=== PATIENT | female | born 1955 | race Two or more races ===

== ENCOUNTER 2017-11-24 23:52 | Inpatient (IN) | payer MEDICARE, OTHER ==
[~2017-11-24] VITALS: Ht 149.9 cm; Wt 67.6 kg
--- NOTE | 2017-11-25 | NUR ---
ADMITTED A 62 Y/O FEMALE FROM [facility], ON 5150 HOLD, BASED ON HOLD, PATIENT C/O SUICIDAL IDEATION WITH A PLAN TO STAB HERSELF IN THE THROAT PLUS PROMINENT THOUGHTS OF HURTING NONSPECIFIED OTHERS WELL KILLING HER CAT. SHE REPORTED BEING SEVERELY DESPONDENT DUE TO PROMINENT DEPRESSION, ANXIETY, INTERMITTENT VISUAL HALLUCINATIONS. HX. OF TBI. PATIENT ADMITTING DX. OF PSYCHOSIS AND MEDICAL DX. HYPERCHOLESTEROLEMIA AND GERD. PATIENT HAS ALLERGIES TO A-CILLIN, HYDROCODONE,/POTASSIUM GUAIACOLSULFONATE, PROPRANOLOL, SULFA DRUGS. PATIENT TRANSPORTED BY [facility] OF [facility] PRIVATE TRANSPORTATION. UPON FACE TO FACE EVALUATION, PATIENT APPEARED ALERT AND ORIENTED X 3, COOPERATIVE, ANXIOUS, GUARDED, PARANOID, DEPRESSED, WITH VISUAL HALLUCINATION SEEING CARLITOS TREES AND ARCELIA PERFECTO, PATIENT ALSO STATED THAT SHE WANTS TO GET BETTER. HEAD TO TOE ASSESSMENT DONE. NO SOB, NO ACUTE DISTRESS, BREATHING EVEN AND UNLABORED, DENIES PAIN AND DISCOMFORT, DENIES SI/HI, PICTURE DONE. PAPER WORKS SIGNED BY THE PATIENT. NOTIFIED DR. SWIFT OF THE ADMISSION. BELONGINGS INSPECTED FOR CONTRABAND CHECKED. KEPT CLEAN, DRY AND COMFORTABLE, WILL CONTINUE TO MONITOR [id number] FOR SAFETY
[2017-11-25] MEDS ORDERED: LORAZEPAM 0.5 MG TABLET PO PRN (01:00)
[2017-11-25] MEDS ORDERED: MAG HYDROX/AL HYDROX/SIMETH 30 ML UDC PO PRN (01:00)
[2017-11-25] MEDS ORDERED: MAGNESIUM HYDROXIDE 30 ML UDC PO PRN (01:00)
[2017-11-25] MEDS ORDERED: ACETAMINOPHEN 325 MG TABLET ONE (01:29)
[2017-11-25] MEDS ORDERED: TEMAZEPAM 7.5 MG CAPSULE ONE (01:30)
[2017-11-25] MEDS: TEMAZEPAM 7.5 MG CAPSULE PO PRN (01:39)
[2017-11-25] MEDS: ACETAMINOPHEN 325 MG TABLET PO PRN (01:40)
[2017-11-25] MEDS ORDERED: RANI150C4 PO (02:04)
[2017-11-25] MEDS ORDERED: BUPR150T5 PO (02:04)
[2017-11-25] MEDS ORDERED: CLON2TAB PO (02:04)
[2017-11-25] MEDS ORDERED: QUET100T PO (02:04)
[2017-11-25] MEDS ORDERED: LITH300T PO (02:04)
[2017-11-25] MEDS ORDERED: ATOR10TA PO (02:04)
[2017-11-25] MEDS ORDERED: BUSP10TA35 PO (02:04)
[2017-11-25] MEDS ORDERED: ARIP5TAB10 PO (02:04)
[2017-11-25 02:07] VITALS: BP 139/63
[2017-11-25 08:00] VITALS: BP 129/82
[2017-11-25 09:04] LABS: ALBUMIN 4.4 g/dL (3.4-5.0); BILIRUBIN,TOTAL 0.4 mg/dL (0.2-1.0); CALCIUM, SERUM 9.6 mg/dL (8.5-10.1); CREATININE 0.8 mg/dL (0.6-1.3); POTASSIUM 4.2 mmol/L (3.5-5.1); TOTAL PROTEIN, SERUM 8.1 g/dL (6.4-8.2)
[2017-11-25] MEDS: ATORVASTATIN 10 MG TABLET PO SCH (09:57)
[2017-11-25] MEDS: FAMOTIDINE (20 MG) 20 MG TABLET PO SCH ×2 (09:59→21:49)
[2017-11-25] MEDS: clonazePAM 0.5 MG TABLET PO SCH ×4 (13:00→17:37)
[2017-11-25 16:27] VITALS: BP 127/90
[2017-11-25] MEDS: busPIRone 5 MG TABLET PO SCH ×2 (17:06→20:03)
[2017-11-25] MEDS: LITHIUM CARBONATE 150 MG CAPSULE PO SCH ×2 (17:06→20:03)
[2017-11-25 20:21] VITALS: BP 79/56
[2017-11-25 21:44] VITALS: BP 118/68
[2017-11-25] MEDS: QUETIAPINE FUMARATE 25 MG TABLET PO SCH (21:47)
[2017-11-25 22:00] VITALS: BP 118/68
[2017-11-25] MEDS: clonazePAM 1 MG TABLET PO SCH (22:36)
[2017-11-26 08:00] VITALS: BP 110/63
[2017-11-26 08:18] LABS: CHOLESTEROL 133 mg/dL (<200); HDL CHOLESTEROL 47 mg/dL (40-60); LDL 73 mg/dL (0-99); TRIGLYCERIDES 126 mg/dL (30-150)
[2017-11-26] MEDS: LITHIUM CARBONATE 150 MG CAPSULE PO SCH ×3 (09:17→16:33)
[2017-11-26] MEDS: ATORVASTATIN 10 MG TABLET PO SCH (09:17)
[2017-11-26] MEDS: FAMOTIDINE (20 MG) 20 MG TABLET PO SCH ×2 (09:17→21:01)
[2017-11-26] MEDS: busPIRone 5 MG TABLET PO SCH ×3 (09:17→16:33)
[2017-11-26] MEDS: clonazePAM 0.5 MG TABLET PO SCH ×3 (09:18→16:33)
--- NOTE | 2017-11-26 12:55 | NUR ---
Initial Discharge Note: Patient lives in an apartment located at [address] [place] [address] and wishes to return their upon discharge. Patient states that her daughter lives nearby and that she has dinner with her daughter and her grandson every week. Patient states that she has very friendly neighbors and a good support system. SW called and left a voicemail with direct contact information for patient's daughter, Fadia Trevino, . SW to follow up with MD and to facilitate safe discharge.
[2017-11-26 15:56] VITALS: BP 107/70
[2017-11-26 20:15] VITALS: BP 132/76
[2017-11-26] MEDS: QUETIAPINE FUMARATE 25 MG TABLET PO SCH (21:25)
[2017-11-26] MEDS: clonazePAM 1 MG TABLET PO SCH (21:59)
[2017-11-27 08:00] VITALS: BP 117/66
[2017-11-27] MEDS: busPIRone 5 MG TABLET PO SCH ×3 (08:25→16:09)
[2017-11-27] MEDS: ATORVASTATIN 10 MG TABLET PO SCH (08:25)
[2017-11-27] MEDS: clonazePAM 0.5 MG TABLET PO SCH ×3 (08:25→16:09)
[2017-11-27] MEDS: LITHIUM CARBONATE 150 MG CAPSULE PO SCH ×3 (08:25→16:09)
[2017-11-27] MEDS: FAMOTIDINE (20 MG) 20 MG TABLET PO SCH ×2 (08:25→21:24)
[2017-11-27 16:01] VITALS: BP 132/71
[2017-11-27 20:00] VITALS: BP 119/69
[2017-11-27] MEDS: clonazePAM 1 MG TABLET PO SCH (21:24)
[2017-11-27] MEDS: QUETIAPINE FUMARATE 25 MG TABLET PO SCH (21:24)
--- NOTE | 2017-11-28 05:32 | NUR ---
GPS/RN-NOTES PATIENT SLEEPING WITH BREATHING EVEN AND NONLABORED,EASILY AROUSES. WILL CONT. MONITORING Q15 MINS. FOR SAFETY AND BEHAVIOR. ENDORSE TO THE CHARGE NURSE FOR MONITORING AND CONTINUITY OF CARE
[2017-11-28 08:00] VITALS: BP 139/71
[2017-11-28] MEDS: ATORVASTATIN 10 MG TABLET PO SCH (08:52)
[2017-11-28] MEDS: busPIRone 5 MG TABLET PO SCH ×3 (08:52→17:10)
[2017-11-28] MEDS: LITHIUM CARBONATE 150 MG CAPSULE PO SCH ×3 (08:52→17:10)
[2017-11-28] MEDS: FAMOTIDINE (20 MG) 20 MG TABLET PO SCH ×2 (08:52→21:56)
[2017-11-28] MEDS: clonazePAM 0.5 MG TABLET PO SCH ×3 (08:52→17:10)
[2017-11-28 21:36] VITALS: BP 124/66
[2017-11-28] MEDS: clonazePAM 1 MG TABLET PO SCH (21:56)
[2017-11-28] MEDS ORDERED: QUETIAPINE FUMARATE 25 MG TABLET PO SCH (22:00)
[2017-11-29 08:00] VITALS: BP 137/78
[2017-11-29] MEDS: ATORVASTATIN 10 MG TABLET PO SCH (08:48)
[2017-11-29] MEDS: LITHIUM CARBONATE 150 MG CAPSULE PO SCH ×3 (08:49→16:29)
[2017-11-29] MEDS: clonazePAM 0.5 MG TABLET PO SCH ×2 (08:49→16:29)
[2017-11-29] MEDS: busPIRone 5 MG TABLET PO SCH ×3 (08:49→16:29)
[2017-11-29] MEDS: FAMOTIDINE (20 MG) 20 MG TABLET PO SCH ×2 (08:49→20:24)
[2017-11-29 16:00] VITALS: BP 119/69
[2017-11-29 20:00] VITALS: BP_SYST 117; BP_SYST 99; BP_DIAS 66
[2017-11-29] MEDS: ACETAMINOPHEN 325 MG TABLET PO PRN (20:32)
[2017-11-29] MEDS: clonazePAM 1 MG TABLET PO SCH (21:17)
[2017-11-29] MEDS: TEMAZEPAM 7.5 MG CAPSULE PO PRN (21:17)
[2017-11-29] MEDS ORDERED: QUETIAPINE FUMARATE 25 MG TABLET PO SCH (22:00)
[2017-11-29] MEDS ORDERED: QUETIAPINE FUMARATE 25 MG TABLET ONE (23:43)
[2017-11-30 08:00] VITALS: BP 143/65
[2017-11-30] MEDS: FAMOTIDINE (20 MG) 20 MG TABLET PO SCH ×2 (09:25→21:17)
[2017-11-30] MEDS: ATORVASTATIN 10 MG TABLET PO SCH (09:25)
[2017-11-30] MEDS: clonazePAM 0.5 MG TABLET PO SCH ×2 (09:25→17:44)
[2017-11-30] MEDS: busPIRone 5 MG TABLET PO SCH ×3 (09:26→17:44)
[2017-11-30] MEDS: LITHIUM CARBONATE 150 MG CAPSULE PO SCH ×3 (09:26→17:44)
[2017-11-30 16:00] VITALS: BP 119/62
[2017-11-30] MEDS: ACETAMINOPHEN 325 MG TABLET PO PRN (17:55)
[2017-11-30 19:59] VITALS: BP 123/60
[2017-11-30] MEDS: clonazePAM 1 MG TABLET PO SCH (21:17)
[2017-11-30] MEDS: QUETIAPINE FUMARATE 25 MG TABLET PO SCH (21:18)
[2017-12-01 08:00] VITALS: BP 140/65
[2017-12-01] MEDS: FAMOTIDINE (20 MG) 20 MG TABLET PO SCH ×2 (08:36→21:29)
[2017-12-01] MEDS: ATORVASTATIN 10 MG TABLET PO SCH (08:36)
[2017-12-01] MEDS: busPIRone 5 MG TABLET PO SCH ×3 (08:36→17:15)
[2017-12-01] MEDS: LITHIUM CARBONATE 150 MG CAPSULE PO SCH ×3 (08:36→17:15)
[2017-12-01] MEDS: clonazePAM 0.5 MG TABLET PO SCH ×2 (08:36→17:15)
--- NOTE | 2017-12-01 11:04 | NUR ---
Discharge Planning: ROS called and spoke with Rosemarie from [facility] to set up transportation for patient. Rosemarie stated that she needs some time to confirm and arrange transportation. ROS provided Rosemarie with her direct contact information. ROS to follow up later in the day to confirm transport for discharge tomorrow. Addendum: 12/01/17 at 1210 by DEIDRE SOMMER Rosemarie's contact number is [phone]
[2017-12-01 16:13] VITALS: BP 112/64
[2017-12-01 19:56] VITALS: BP 118/51
[2017-12-01] MEDS: QUETIAPINE FUMARATE 25 MG TABLET PO SCH (21:29)
[2017-12-01] MEDS: clonazePAM 1 MG TABLET PO SCH (21:29)
[2017-12-02 08:00] VITALS: BP 114/65
[2017-12-02] MEDS: busPIRone 5 MG TABLET PO SCH ×2 (08:17→11:49)
[2017-12-02] MEDS: LITHIUM CARBONATE 150 MG CAPSULE PO SCH ×2 (08:17→11:49)
[2017-12-02] MEDS: ATORVASTATIN 10 MG TABLET PO SCH (08:17)
[2017-12-02] MEDS: clonazePAM 0.5 MG TABLET PO SCH (08:17)
[2017-12-02] MEDS: FAMOTIDINE (20 MG) 20 MG TABLET PO SCH (08:43)
--- NOTE | 2017-12-02 09:50 | NUR ---
Discharge Planning: ROS confirmed with Rosemarie from [facility] [phone] that a party bus driver "left an hour ago" to pick patient up and transport her home.
--- NOTE | 2017-12-02 09:53 | NUR ---
Discharge Note: Patient will be discharged home to [address] [place] [address]. Patients daughter Fadia Trevino, and son Toni [phone] were informed by ROS. Both were in agreement. Transportation was arranged by ROS through Rosemarie at [facility] services, . Patient will be picked up by tank truck driver Jami, at approximately 12pm. Upon discharge, patient denies suicidal and homicidal ideation. Patient denies visual and auditory hallucinations. Patient is cooperative. Patient will follow up with her psychiatrist, Dr. Toussaint [address] [address], on December 16 at 1:30pm. Patient will also see her shank skinner, OTONIEL Myers [address] [place] [address] on December 08 at 2:30pm.
[2017-12-02] MEDS: ACETAMINOPHEN 325 MG TABLET PO PRN (11:49)
--- NOTE | 2017-12-02 13:45 | NUR ---
GPS/RN PATIENT CLEARED FOR DISCHARGE HOME BY DR SWIFT AND DR RAO. PRESCRIPTIONS, MEDICATIONS, EXIT CARE PACKET AND AFTERCARE PLAN EXPLAINED TO PATIENT, VERBALIZED UNDERSTANDING. PRESCRIPTIONS CALLED INTO [facility]. BELONGINGS RETURNED AND SIGNED FOR, DISCHARGE PHOTOS TAKEN ON 12/01/15. PATIENT DENIES SI/HI/AH UPON DISCHARGE. LEFT UNIT CALM , COOPERATIVE, STABLE CONDITION, NO DISTRESS NOTED WITH TRANSPORT AND STAFF MEMBER AT SIDE.
== END 2017-12-02 17:38 | disposition home or self-care (01) | DRG 885 ==
LOC: GPS 23:52
PROVIDERS: ADMIT Psychiatry & Neurology Psychosomatic Medicine; ATTEND Internal Medicine
DX: F31.9 Bipolar disorder, unspecified (principal); E78.5 Hyperlipidemia, unspecified; F23 Brief psychotic disorder; F41.9 Anxiety disorder, unspecified; K21.9 Gastro-esophageal reflux disease without esophagitis; I10 Essential (primary) hypertension; G25.0 Essential tremor; Z73.6 Limitation of activities due to disability; Z87.820 Personal history of traumatic brain injury; T42.4X5A Adverse effect of benzodiazepines, initial encounter; Y92.009 Unspecified place in unspecified non-institutional (private) residence as the place of occurrence of the external cause; Z79.899 Other long term (current) drug therapy
CPT/HCPCS: 36415; 80048-TC; 80053-TC; 80061-TC